=== PATIENT | male | born 1970 | race Caucasian/White ===

== ENCOUNTER 2018-01-28 14:02 | Emergency (ER) | payer OTHER, MEDICARE ==
[~2018-01-28] VITALS: Ht 177.8 cm; Wt 88.9 kg
[2018-01-28 15:00] VITALS: BP 108/72
--- NOTE | 2018-01-28 15:19 | PHYS DOC ---
Adult General Chief Complaint Chief Complaint: INSECT BITE HPI HPI 47-year-old male presents after being stung by a wasp on the left side of his lip. Presents today because the lip is swollen up much more than he expected. Prior to arrival, patient's gave him "one half a bottle of Benadryl". He has had no difficulty breathing and denies shortness of breath. He does not feel as though his throat is closing or swollen. He has not been allergic to stings in the past. He denies numbness around the area. He has no other complaints. Review of Systems Review of Systems Constitutional: Denies fever or chills [] Eyes: Denies change in visual acuity, redness, or eye pain [] HENT: Denies nasal congestion or sore throat [] Respiratory: Denies cough or shortness of breath [] Cardiovascular: No additional information not addressed in HPI [] GI: Denies abdominal pain, nausea, vomiting, bloody stools or diarrhea [] : Denies dysuria or hematuria [] Musculoskeletal: Denies back pain or joint pain [] Integument: Sting to the face[] Neurologic: Denies headache, focal weakness or sensory changes [] Endocrine: Denies polyuria or polydipsia [] All other systems were reviewed and found to be within normal limits, except as documented in this note. Allergies Allergies Allergies Coded Allergies Type Severity Reaction Last Updated Verified No Known Drug Allergies 01/28/18 No Physical Exam Physical Exam Constitutional: Well developed, well nourished, no acute distress, non-toxic appearance. [] HENT: Normocephalic, atraumatic, bilateral external ears normal, oropharynx moist, no oral exudates, nose normal. [] Eyes: PERRLA, EOMI, conjunctiva normal, no discharge. [] Neck: Normal range of motion, no tenderness, supple, no stridor. [] Cardiovascular:Heart rate regular rhythm, no murmur [] Lungs & Thorax: Bilateral breath sounds clear to auscultation [] Abdomen: Bowel sounds normal, soft, no tenderness, no masses, no pulsatile masses. [] Skin: Small erythematous papule on the left upper lip consistent with a wasp or bee sting. No foreign body seen.[] Back: No tenderness, no CVA tenderness. [] Extremities: No tenderness, no cyanosis, no clubbing, ROM intact, no edema. [] Neurologic: Alert and oriented X 3, normal motor function, normal sensory function, no focal deficits noted. [] Psychologic: Affect normal, judgement normal, mood normal. [] EKG EKG [] Radiology/Procedures Radiology/Procedures [] Course & Med Decision Making Course & Med Decision Making Pertinent Labs and Imaging studies reviewed. (See chart for details) By the time I examined the patient, the swelling was much improved. He continued to have no complications in the ED. He is stable to go home. Wasp sting to the face. [] Dragon Disclaimer Dragon Disclaimer This electronic medical record was generated, in whole or in part, using a voice recognition dictation system. Departure Departure: Impression: Primary Impression: Wasp sting Disposition: 01 HOME, SELF-CARE Condition: STABLE Patient Instructions: Bee, Wasp, or Hornet Sting JENNA OSBORNE DO January 28, 2018 15:19
== END 2018-01-28 15:20 | disposition home or self-care (01) ==
LOC: ER 14:02
DX: T63.461A Toxic effect of venom of wasps, accidental (unintentional), initial encounter (principal); Y92.89 Other specified places as the place of occurrence of the external cause
CPT/HCPCS: 99281